=== PATIENT | male | born 1975 | race Caucasian/White ===

== ENCOUNTER 2020-01-01 13:09 | Emergency (ER) | payer BC, SELFPAY ==
[2020-01-01 13:19] VITALS: BP 111/76; PULSE 73; RESP 14; TEMP 36.9; O2SAT 99
--- NOTE | 2020-01-01 13:22 | ED.GENADULT ---
HPI - General Adult General Chief complaint: Skin/Abscess/Foreign Body Stated complaint: Rash on Legs/thighs Time Seen by Provider: 01/01/20 13:24 Source: patient and RN notes reviewed Mode of arrival: ambulatory Limitations: no limitations History of Present Illness HPI narrative: This is a 44 years old male presents to the office for an evaluation of rash. Onset three days ago. Rash has spreaded. Admits to new pairs of pants. He also admits to sweating a lot. Denies new medication, detergent, body wash or food.Denies sick contact. He has tried [id number] cortisone, Benadryl with minimal relief. Unknown TD; would like a booster. Related Data Allergies Allergy/AdvReac Type Severity Reaction Status Date / Time No Known Allergies Allergy Verified 01/01/20 13:26 Review of Systems Review of Systems: Narrative: CONSTITUTIONAL: Denies fever, chills. Reports feeling malaise ENT: Denies congestion CARDIOVASCULAR: Denies chest pain RESPIRATORY: Denies cough GASTROINTESTINAL: Denies abdominal pain, nausea, vomiting GENITOURINARY: Denies urinary symptoms SKIN: Reports red,itchy rash on his right thigh; which has now spread to left hip and groin area. MUSCULOSKELETAL: Denies legs pain/injury NEUROLOGIC: Denies lightheaded PMFSH Past Medical History Medical History Lactose intolerance in adult Social History Social History Smoking status: Never smoker Alcohol intake: never Comments At time of signature, I agree with nursing past medical, surgical, social and family history. There is no relevant family history pertinent to the presenting complaint. Exam Narrative: Exam Narrative: GENERAL: This is a well-nourished, well-developed patient, in no apparent distress. CARDIOVASCULAR: Regular rate and rhythm without murmurs, gallops, or rubs. RESPIRATORY: Clear to auscultation. Breath sounds equal bilaterally. No wheezes, rales, or rhonchi. GASTROINTESTINAL: Abdomen soft, non-tender, nondistended. Bowel sounds are active. No hepato-splenomegaly, or palpable masses. No guarding. NEURO: awake, alert, and oriented to person, place and time. There were no obvious focal neurologic abnormalities. Steady gait EXTREMITIES: Right thigh above knee noted scatter, blanchable macular-erythema lesion and wrap around to his left hip and more sparing rash in groin region. Hollister Coma Scale Eye Opening: Spontaneous 4 Hollister Coma Scale Motor: Obeys Commands 6 Irina Coma Scale Verbal: Oriented 5 Medical Decision Making MDM Narrative Medical decision making narrative: Discharge instructions reviewed with patient, as well as provided in writing per nursing staff. The instructions also include specific and strict return/GO TO THE ER as well as f/u information. All questions have been answered, and the patient deny any further questions with discharge and discharge plan. Differential Diagnosis Differential Diagnosis: Contact/allergic dermatitis, atopic dermatitis, psoriasis, eczema, cellulitis, tinea, erythema multiforme, viral exanthem, drug eruption Medical Records Medical records reviewed: Yes I reviewed the patient's medical records. Critical Care Time Critical Care Time Critical Care Time: No Discharge Plan Discharge Clinical Impression: Dermatitis Patient Disposition: Home, Self-Care Condition: Stable Instructions: Dermatitis (ED) Additional Instructions: Make sure to take prednisone with food. Use the nystatin cream when it spread to your groin area. Avoid hot shower/bathe as it may cause more irritation Also recommend cold compression/lotion/cream on affected area to reduce itchiness along with Benadryl 25mg-50mg as needed for itchiness. Avoid scratching when possible to prevent worsening of the condition and disruption of the skin that could lead to bacterial infection Follow up with primary care
[2020-01-01] MEDS: TETANUS,DIPHTHERIA,AC PERTUSSIS ADULT 0.5 ML (ADACEL) IM (13:44)
== END 2020-01-01 14:04 | disposition home or self-care (01) ==
PROVIDERS: Emergency Provider Nurse Practitioner; PCP Family Medicine
DX: L30.9 Dermatitis, unspecified (principal); Z23 Encounter for immunization
CPT/HCPCS: 90471; 90715; 99213; G0463

== ENCOUNTER 2022-01-10 13:24 | Outpatient (CLI) | payer OTHER, SELFPAY ==
--- NOTE | ~2022-01-10 | XR_ITS ---
XR cervical spine 4-5V DATE: 01/10/2022 13:40 INDICATION: Neck pain TECHNIQUE: AP, open-mouth, lateral, swimmer views COMPARISON: None FINDINGS: There is straightening of the cervical spine. There is mild levoscoliosis of the cervical a nd upper thoracic spine. C1 and C2 are normally aligned and the odontoid process is intact. No fracture or dislocation or lock ed facet or prevertebral soft tissue swelling. Cervical interspaces are preserved. IMPRESSION: Straightening of the cervical spine which may be due to muscle spasm Mild levoscoliosis of the cervical and upper thoracic spine. Reviewed, dictated and finalized at location [facility]. IMPRESSION: Straightening of the cervical spine which may be due to muscle spas m Mild levoscoliosis of the cervical and upper thoracic spine.
== END 2022-01-10 13:25 | disposition home or self-care (01) ==
LOC: ANHIMG 13:27
PROVIDERS: PCP Family Medicine; Visit Provider Family Medicine
DX: M54.12 Radiculopathy, cervical region (principal); M53.82 Other specified dorsopathies, cervical region; M41.82 Other forms of scoliosis, cervical region
CPT/HCPCS: 72050

== ENCOUNTER 2023-01-01 15:12 | Outpatient (CLI) | payer OTHER, SELFPAY ==
--- NOTE | ~2023-01-01 | CT_ITS ---
EXAMINATION: CT abdomen pelvis wo con DATE: 01/01/2023 15:30 INDICATION: Low back pain. Hematuria. History kidney stones. TECHNIQUE: Computed tomography (CT) of the abdomen and pelvis was performed without intravenous contr ast. Automated exposure control and iterative reconstruction technique were employed. Exam dose: 108 6.12 mGy-cm total exam DLP. COMPARISON: None. FINDINGS: There is mild patchy middle lobe infiltrate. Small nonspecific middle lobe nodule. Normal heart size. No pericardial or pleural effusion. Small sliding hiatal hernia. The liver, gallbladder, bile ducts, spleen, pancreas, adrenal glands are unremarkable. Approximately 2.5 mm nonobstructing lower pole right renal calculus. No other urinary tract calculus or hydroureteronephrosis. Approximately 5.2 cm left renal cyst. No other renal space occupying mass lesion. Normal caliber of the abdominal aorta. Multiple shotty nonenlarged mesenteric lymph nodes. No intrape ritoneal or retroperitoneal or pelvic mass lesion or adenopathy or ascites. Moderate prostate enlargement. Prostate calcifications. The urinary bladder appears unremarkable. Normal appendix. No bowel obstruction, bowel wall thickening, pneumatosis or intraperitoneal free air . Small fat-containing umbilical hernia. Old healed posterior left seventh rib fracture deformity. Included skeletal structures are otherwise unremarkable. IMPRESSION: 2.5 mm nonobstructing lower pole right renal calculus; no other urinary tract calculus o r hydroureteronephrosis Prostate enlargement and calcifications Small sliding hiatal hernia Normal appendix Reviewed, dictated and finalized at [facility]. Reviewed, dictated and finalized at location L. IMPRESSION: 2.5 mm nonobstructing lower pole right renal calculus; no other ur inary tract calculus or hydroureteronephrosis Prostate enlargement and calcifications Small sliding hiatal hernia Normal appendix
== END 2023-01-01 15:13 ==
LOC: GOSHIMG 15:13
PROVIDERS: PCP Family Medicine; Visit Provider Nurse Practitioner Family
DX: M54.50 Low back pain, unspecified (principal); R31.9 Hematuria, unspecified; K44.9 Diaphragmatic hernia without obstruction or gangrene; N20.0 Calculus of kidney; N40.0 Benign prostatic hyperplasia without lower urinary tract symptoms
CPT/HCPCS: 74176